=== PATIENT | female | born 1940 | race Caucasian/White ===

== ENCOUNTER 2020-11-12 05:07 | Emergency (ER) | payer MEDICARE, OTHER ==
[~2020-11-12 05:07] MED LIST: 8 HOUR650 MG PO; ASCORBIC ACID500 MG PO; CEFDINIR300 MG PO; CYMBALTA 30MG C30 MG PO; GLUCOTROL5 MG PO; LISINOPRIL-HCT1 EAC2 PO; MEDIHONEY44 ML TOP; MELATONIN5 M2 PO; METFORMIN HCL500 MG PO; ORAZINC220 MG PO; VITAMIN D250 MCG PO
[2020-11-12 06:29] LABS: BASOPHIL 0.5 % (0-2); EOSINOPHIL 2.9 % (0-7); HCT 31.5 % (37.0-47.0); HGB 9.7 g/dl (12.5-16.0); LYMPHOCYTE 25.1 % (15-48); MCH 25.8 pg (25.0-31.0); MCHC 30.8 g/dL (32.0-36.0); MCV 83.8 fL (78.0-100.0); MONOCYTE 8.6 % (0-12); NEUTROPHIL 62.6 % (41-80); NRBC 0; PLT 181 K/uL (150-400); RBC 3.76 M/uL (4.20-5.40); RDW 14.7 % (11.5-14.0); WBC 3.8 K/uL (4.0-10.5)
[2020-11-12 06:46] LABS: BILIRUBIN - TOTAL 0.2 mg/dL (0.2-1.0); BUN/CREAT RATIO (CALC) 31.1 RATIO; CREATININE 1.35 mg/dL (0.51-0.95); GLOBULIN (CALCULATION) 4.1 g/dL; POTASSIUM 4.5 mmol/L (3.5-5.1); TOTAL PROTEIN 7.1 g/dL (6.4-8.2)
[2020-11-12 07:00] LABS: LACTIC ACID 0.4 mmol/L (0.4-1.9)
[2020-11-12 07:12] LABS: BILIRUBIN NEGATIVE (NEGATIVE); BLOOD TRACE-INTACT Ery/uL (NEGATIVE); CLARITY CLEAR (CLEAR); COLOR YELLOW (YELLOW); GLUCOSE (U) NORMAL (NORMAL); LEUKOCYTES 2+ Leu/uL (NEGATIVE); NITRITE NEGATIVE (NEGATIVE); PROTEIN NEGATIVE (NEGATIVE); SPECIFIC GRAVITY 1.015 (1.001-1.030); UROBILINOGEN 0.2 mg/dL (0.2-1.0)
[2020-11-12 07:15] LABS: CORONAVIRUS 2019 SARS-COV-2 POSITIVE (NEGATIVE); INFLUENZA A NAA NEGATIVE (NEGATIVE)
[2020-11-12 07:20] LABS: BACTERIA 2+
[2020-11-12] MEDS ORDERED: KEFLEX500 MG PO (08:05)
== END 2020-11-12 13:34 | disposition home or self-care (01) ==
LOC: FER 05:07
PROVIDERS: Emergency Medicine Emergency Medical Services
DX: U07.1 COVID-19 (principal); N39.0 Urinary tract infection, site not specified; I12.9 Hypertensive chronic kidney disease with stage 1 through stage 4 chronic kidney disease, or unspecified chronic kidney disease; E11.22 Type 2 diabetes mellitus with diabetic chronic kidney disease; N18.30 Chronic kidney disease, stage 3 unspecified; F03.90 Unspecified dementia, unspecified severity, without behavioral disturbance, psychotic disturbance, mood disturbance, and anxiety; R60.0 Localized edema; Z87.19 Personal history of other diseases of the digestive system
CPT/HCPCS: 36415; 71045; 80053; 81001; 83605; 84145; 84484; 85025; 87040; 87076; 87088; 87186; 93005; J0696; U0002

== ENCOUNTER 2022-03-23 16:48 | Inpatient (IN) | payer MEDICARE, OTHER ==
[~2022-03-23] VITALS: Ht 172.7 cm; Wt 103.6 kg
[~2022-03-23 16:48] MED LIST changes: +KEFLEX500 MG PO
[2022-03-23 17:48] LABS: INR 1.02 (0.9-1.2); PROTHROMBIN TIME 12.8 SECONDS (11.8-13.4); PTT 38.3 SECONDS (24.4-34.7)
[2022-03-23 17:56] LABS: BILIRUBIN NEGATIVE (NEGATIVE); BLOOD NEGATIVE Ery/uL (NEGATIVE); CLARITY CLEAR (CLEAR); COLOR YELLOW (YELLOW); GLUCOSE (U) NORMAL (NORMAL); LEUKOCYTES 2+ Leu/uL (NEGATIVE); NITRITE NEGATIVE (NEGATIVE); PROTEIN NEGATIVE (NEGATIVE); SPECIFIC GRAVITY 1.025 (1.001-1.030); UROBILINOGEN 0.2 mg/dL (0.2-1.0); pH 5.5 (5.0-9.0)
[2022-03-23 17:58] LABS: AMPHETAMINES NEGATIVE (NEGATIVE); BARBITURATES NEGATIVE (NEGATIVE); ECSTASY (MDMA) NEGATIVE (NEGATIVE); MARIJUANA (THC) NEGATIVE (NEGATIVE); METHADONE NEGATIVE (NEGATIVE); OPIATES NEGATIVE (NEGATIVE); OXYCODONE NEGATIVE (NEGATIVE)
[2022-03-23 17:59] LABS: LACTIC ACID 0.7 mmol/L (0.4-1.9)
[2022-03-23 18:02] LABS: ACETAMINOPHEN (TYLENOL) <2.0 ug/mL (10.0-30.0); ALBUMIN 2.5 g/dL (3.4-5.0); ALKALINE PHOSHATASE 114 U/L (46-116); ALT 22 U/L (14-59); AST 12 U/L (15-37); BILIRUBIN - TOTAL 0.2 mg/dL (0.2-1.0); CHLORIDE 96 mmol/L (98-107); CO2 (BICARBONATE) 22 mmol/L (21-32); CREATININE 1.61 mg/dL (0.51-0.95); GLUCOSE 91 mg/dL (74-106); MAGNESIUM 2.4 mg/dL (1.8-2.4); POTASSIUM 5.1 mmol/L (3.5-5.1); TOTAL PROTEIN 6.5 g/dL (6.4-8.2)
[2022-03-23 18:06] LABS: BUN 87 mg/dL (7-18)
[2022-03-23 18:09] LABS: BACTERIA TRACE; URINARY RBC RARE
[2022-03-23 18:10] LABS: AMORPHOUS URATES CRYSTALS MODERATE; SQUAMOUS EPITHELIAL CELLS RARE
[2022-03-23 18:16] LABS: BASOPHIL 0.4 % (0-2); EOSINOPHIL 3.2 % (0-7); HGB 9.2 g/dl (12.5-16.0); LYMPHOCYTE 23.3 % (15-48); MCH 24.2 pg (25.0-31.0); MCHC 31.7 g/dL (32.0-36.0); MCV 76.3 fL (78.0-100.0); MONOCYTE 8.2 % (0-12); NEUTROPHIL 64.5 % (41-80); NRBC 0; RDW 18.5 % (11.5-14.0); WBC 4.7 K/uL (4.0-10.5)
[2022-03-23 18:32] LABS: PLT 96 K/uL (150-400)
[2022-03-23 18:36] LABS: CORONAVIRUS 2019 SARS-COV-2 NEGATIVE (NEGATIVE); INFLUENZA A NAA NEGATIVE (NEGATIVE)
[2022-03-24] MEDS ORDERED: ACETAMINOPHEN325 M1 PO (04:21)
[2022-03-24] MEDS ORDERED: ASPIRIN81 MG PO (04:22)
[2022-03-24] MEDS ORDERED: OS-CAL500 MG PO (04:22)
[2022-03-24] MEDS ORDERED: VITAMIN B-12100 MCG PO (04:23)
[2022-03-24] MEDS ORDERED: PRINIVIL20 MG PO (04:24)
[2022-03-24] MEDS ORDERED: HCTZ25 MG PO (04:24)
[2022-03-24] MEDS ORDERED: MULTI-VITAMIN1 EACH PO (04:25)
[2022-03-24] MEDS ORDERED: MYCOLOG15 GM TOP (04:28)
[2022-03-24] MEDS ORDERED: NOVOLOG VI100 UNIT/1 SC (04:28)
[2022-03-24] MEDS ORDERED: PALIPERIDONE E1.5 MG PO (04:29)
[2022-03-24] MEDS ORDERED: TRIAMCINOLONE A15 G2 TOP (04:31)
[2022-03-24] MEDS ORDERED: ACETAMINOPHEN325 MG PO (04:31)
[2022-03-24 05:28] LABS: BASOPHIL 0.4 % (0-2); EOSINOPHIL 1.5 % (0-7); HCT 29.1 % (37.0-47.0); HGB 9.1 g/dl (12.5-16.0); LYMPHOCYTE 17.2 % (15-48); MCHC 31.3 g/dL (32.0-36.0); MCV 76.8 fL (78.0-100.0); MONOCYTE 5.4 % (0-12); NEUTROPHIL 74.4 % (41-80); NRBC 0; PLT 102 K/uL (150-400); RBC 3.79 M/uL (4.20-5.40); RDW 18.5 % (11.5-14.0); RETICULOCYTE COUNT 0.9 % (1.0-2.0); WBC 5.4 K/uL (4.0-10.5)
--- NOTE | 2022-03-24 06:13 | NUR ---
PT. CAME UP FROM ED ON A SHERIE HUGGER FOR RECTAL TEMP OF 95.0. AT 0300 PT. TEMP WAS 97.2. SHERIE HUGGER REMOVED AT THIS TIME. WILL CONTINUE TO MONITOR. JENNIFFERRN
[2022-03-24 08:49] LABS: IRON % SATURATION 22.5 %SAT (20-50)
[2022-03-24 09:03] LABS: ALBUMIN 2.2 g/dL (3.4-5.0); BILIRUBIN - TOTAL 0.2 mg/dL (0.2-1.0); C-REACTIVE PROTEIN 4.5 mg/dL (<=0.90); CREATININE 1.48 mg/dL (0.51-0.95); FT4 (FREE T4) 1.1 ng/dL (0.76-1.46); GLOBULIN (CALCULATION) 3.7 g/dL; MAGNESIUM 2.1 mg/dL (1.8-2.4); POTASSIUM 5.1 mmol/L (3.5-5.1); TOTAL PROTEIN 5.9 g/dL (6.4-8.2)
[2022-03-25 05:24] LABS: BASOPHIL 0.6 % (0-2); EOSINOPHIL 1.9 % (0-7); HCT 29.5 % (37.0-47.0); HGB 9.2 g/dl (12.5-16.0); LYMPHOCYTE 19.3 % (15-48); MCH 24.2 pg (25.0-31.0); MCHC 31.2 g/dL (32.0-36.0); MCV 77.6 fL (78.0-100.0); MONOCYTE 9.8 % (0-12); NEUTROPHIL 67.3 % (41-80); NRBC 0; PLT 108 K/uL (150-400); RDW 18.7 % (11.5-14.0); WBC 5.3 K/uL (4.0-10.5)
[2022-03-25 05:40] LABS: ALBUMIN 1.9 g/dL (3.4-5.0); BILIRUBIN - DIRECT 0.1 mg/dL (0.00-0.20); BILIRUBIN - TOTAL 0.2 mg/dL (0.2-1.0); BUN/CREAT RATIO (CALC) 44.8 RATIO; CREATININE 1.25 mg/dL (0.51-0.95); GLOBULIN (CALCULATION) 3.7 g/dL; POTASSIUM 4.7 mmol/L (3.5-5.1); TOTAL PROTEIN 5.6 g/dL (6.4-8.2)
[2022-03-26 05:34] LABS: BASOPHIL 0.4 % (0-2); EOSINOPHIL 4.3 % (0-7); HCT 29.4 % (37.0-47.0); HGB 9.2 g/dl (12.5-16.0); LYMPHOCYTE 23.2 % (15-48); MCH 24.1 pg (25.0-31.0); MCHC 31.3 g/dL (32.0-36.0); MCV 77.2 fL (78.0-100.0); MONOCYTE 9.9 % (0-12); NEUTROPHIL 61.6 % (41-80); NRBC 0; PLT 103 K/uL (150-400); RBC 3.81 M/uL (4.20-5.40); RDW 18.7 % (11.5-14.0); WBC 4.7 K/uL (4.0-10.5)
[2022-03-26 05:59] LABS: BUN/CREAT RATIO (CALC) 38.1 RATIO; CREATININE 1.18 mg/dL (0.51-0.95); POTASSIUM 5.1 mmol/L (3.5-5.1)
--- NOTE | 2022-03-26 14:05 | NUR ---
03/26 [facility] will accept back. A new COVID test will be required.
[2022-03-27] MEDS ORDERED: LEVAQUIN500 MG PO (10:52)
--- NOTE | 2022-03-27 15:31 | NUR ---
TRANSPORTED BY EMS TO [facility]. IV AND MONITOR DCD. REPORT GIVEN TO MADAN AT [facility] AND TO EMS.
== END 2022-03-27 15:30 | DRG 871 ==
LOC: FER 16:48 → FTCU 21:22 → FICU 21:22
PROVIDERS: Emergency Medicine; Family Medicine; Nurse Practitioner Acute Care; ADMIT Internal Medicine
PROC: 3E033XZ Introduction of Vasopressor into Peripheral Vein, Percutaneous Approach (ICD-10-PCS; principal; 2022-03-24)
PROC: B24BYZZ Ultrasonography of Heart with Aorta using Other Contrast (ICD-10-PCS; 2022-03-24)
PROC: 3E03329 Introduction of Other Anti-infective into Peripheral Vein, Percutaneous Approach (ICD-10-PCS; 2022-03-24)
PROC: 06HY33Z Insertion of Infusion Device into Lower Vein, Percutaneous Approach (ICD-10-PCS; 2022-03-24)
DX: A41.59 Other Gram-negative sepsis (principal); R65.21 Severe sepsis with septic shock; G93.41 Metabolic encephalopathy; J96.02 Acute respiratory failure with hypercapnia; J96.01 Acute respiratory failure with hypoxia; N17.9 Acute kidney failure, unspecified; N30.00 Acute cystitis without hematuria; E87.1 Hypo-osmolality and hyponatremia; F03.91 Unspecified dementia, unspecified severity, with behavioral disturbance; Z16.12 Extended spectrum beta lactamase (ESBL) resistance; I67.82 Cerebral ischemia; Z20.822 Contact with and (suspected) exposure to COVID-19; B96.1 Klebsiella pneumoniae [K. pneumoniae] as the cause of diseases classified elsewhere; Z66 Do not resuscitate; I12.9 Hypertensive chronic kidney disease with stage 1 through stage 4 chronic kidney disease, or unspecified chronic kidney disease; E11.22 Type 2 diabetes mellitus with diabetic chronic kidney disease; N18.30 Chronic kidney disease, stage 3 unspecified; K21.9 Gastro-esophageal reflux disease without esophagitis; E66.01 Morbid (severe) obesity due to excess calories; E86.0 Dehydration; D50.9 Iron deficiency anemia, unspecified; D69.6 Thrombocytopenia, unspecified; L89.322 Pressure ulcer of left buttock, stage 2; L89.42 Pressure ulcer of contiguous site of back, buttock and hip, stage 2; L89.152 Pressure ulcer of sacral region, stage 2; L89.312 Pressure ulcer of right buttock, stage 2; L89.892 Pressure ulcer of other site, stage 2; G47.00 Insomnia, unspecified; K80.20 Calculus of gallbladder without cholecystitis without obstruction; K40.90 Unilateral inguinal hernia, without obstruction or gangrene, not specified as recurrent; K42.9 Umbilical hernia without obstruction or gangrene; L30.4 Erythema intertrigo; F32.9 Major depressive disorder, single episode, unspecified; Z28.311 Partially vaccinated for COVID-19; Z80.1 Family history of malignant neoplasm of trachea, bronchus and lung; Z79.82 Long term (current) use of aspirin; Z79.899 Other long term (current) drug therapy; Z68.34 Body mass index [BMI] 34.0-34.9, adult; Z87.440 Personal history of urinary (tract) infections; Z99.3 Dependence on wheelchair
CPT/HCPCS: 36415; 36600; 70450; 71045; 71250; 80048; 80053; 80076; 80305; 81001; 82140; 82728; 82803; 82962; 83036; 83540; 83550; 83605; 83735; 83880; 84145; 84439; 84443; 84484; 85025; 85610; 85730; 86140; 87040; 87076; 87088; 87186; 93005; 94010; 94760; 94762; 96361; 96374; 96375; 97162; 97166; G0480; J0692; J1650; J2543; J3370; J7030; J7040; J7050; U0002